=== PATIENT | female | born 1985 | race Caucasian/White ===

== ENCOUNTER 2020-09-27 15:19 | Outpatient (REF) | payer OTHER, SELFPAY ==
[2020-09-27 15:27] LABS: Glucose Urine UA NEG (NEG); Leukocyte Esterase Urine 2+ (NEG); Nitrite Urine NEG (NEG); Specific Gravity - Urine <= 1.005 (1.005-1.025); Urine Blood NEG (NEG); Urine Ketones NEG (NEG); Urine Protein NEG (NEG-TRACE)
[2020-09-27 15:34] LABS: Appearance Urine CLEAR; Color Urine YELLOW
[2020-09-27 15:35] LABS: Bacteria Urine 1+ /LPF; RBC Urine 0-2 /HPF (0); Squamous Epithelial Cell Urine TRACE /LPF
== END 2020-09-27 15:20 | disposition home or self-care (01) ==
LOC: HO.LNP 15:19
PROVIDERS: Visit Provider Family Medicine
DX: R30.0 Dysuria (principal)
CPT/HCPCS: 81001

== ENCOUNTER 2020-10-25 10:41 | Outpatient (REF) | payer OTHER, SELFPAY ==
[2020-10-25 14:53] LABS: Free T4 (Free Thyroxine) 1.32 ng/dL (0.71-1.85)
[2020-10-25 15:00] LABS: Syphilis Screen Nonreactive (Nonreactive)
[2020-10-25 16:46] LABS: CT PCR NOT DETECTED (Not Detect.); NG PCR NOT DETECTED (Not Detect.)
[2020-10-26 07:51] LABS: Triiodothyronine T3 Total 113 ng/dL (76-181)
[2020-10-28 08:18] LABS: HBS Num1 24.17 mIU/mL (0-7.99); HBsAGNum1 0.82 S/CO (0.00-0.99); HIV AB/AG Nonreactive (Nonreactive); HIV Num 1 0.08 S/CO (0.00-0.99); Hepatitis B Surface Antigen Negative (Negative); ~Hepatitis B Surface Antibody REACTIVE (Nonreactive)
[2020-10-28 08:25] LABS: Hepatitis B Core Antibody Nonreactive (Nonreactive); ~HepC Num1 0.05 S/CO (0.00-0.79); ~Hepatitis C Antibody Nonreactive (Nonreactive)
== END 2020-10-25 10:42 | disposition home or self-care (01) ==
LOC: HO.WFDLDS 10:41
PROVIDERS: Visit Provider Family Medicine
DX: Z01.84 Encounter for antibody response examination (principal); Z11.4 Encounter for screening for human immunodeficiency virus [HIV]; Z11.3 Encounter for screening for infections with a predominantly sexual mode of transmission; Z11.59 Encounter for screening for other viral diseases; E03.9 Hypothyroidism, unspecified
CPT/HCPCS: 36415; 84439; 84443; 84480; 86704; 86706; 86780; 86803; 87340; 87389; 87491; 87591

== ENCOUNTER 2021-02-27 12:01 | Outpatient (REF) | payer OTHER, SELFPAY ==
--- NOTE | ~2021-02-27 | XR_ITS ---
EXAMINATION: XR FINGER, LEFT CLINICAL INFORMATION: Contractured. COMPARISON: None TECHNIQUE: Three views of the left index finger. FINDINGS: There is mild soft tissue edema around the second digit without evidence of radiopaque foreign bodies. There is anatomic alignment of the joints. No evidence of acute fractures. Carpal rows are maintained. The scapholunate interval is within normal limits. XR/XR finger LT min 2V IMPRESSION: Aside from mild soft tissue edema of the second digit, no other acute radiographic abnormalities are identified.
== END 2021-02-27 12:02 | disposition home or self-care (01) ==
LOC: HO.XRAY 12:01
PROVIDERS: PCP Hospitalist; Visit Provider Hospitalist
DX: M24.549 Contracture, unspecified hand (principal)
CPT/HCPCS: 73140

== ENCOUNTER → 2021-05-01 11:14 | Outpatient (BNVA) | payer OTHER, SELFPAY | PROVIDERS: PCP Hospitalist; Visit Provider Advanced Practice Midwife ==

== ENCOUNTER 2021-06-12 08:35 | Outpatient (REF) | payer OTHER, SELFPAY ==
[2021-06-12 13:34] LABS: Hematocrit 43.6 % (37.0-47.0); Hemoglobin 14.7 g/dl (12.0-16.0); Mean Corpuscular HGB Conc 33.7 g/dl (31.0-35.0); Mean Corpuscular Hemoglobin 29.3 pg (27.0-33.0); Mean Corpuscular Volume 86.9 fL (80.0-98.0); Platelet Count 241 X10*3/uL (160-400); Red Blood Count 5.02 X10*6/uL (4.20-5.50); Red Cell Distribution Width 12.8 % (11.0-16.0); White Blood Count 7.8 X10*3/uL (4.8-10.8)
[2021-06-12 14:03] LABS: TSH reflex Free T4 0.09 uIU/mL (0.32-4.0)
[2021-06-12 14:35] LABS: Free T4 (Free Thyroxine) 1.22 ng/dL (0.71-1.85)
== END 2021-06-12 08:36 | disposition home or self-care (01) ==
LOC: HO.WFDLDS 08:35
PROVIDERS: Visit Provider Hospitalist
DX: R40.3 Persistent vegetative state (principal)
CPT/HCPCS: 36415; 84439; 84443; 85027

== ENCOUNTER 2021-06-18 08:59 | Outpatient (REF) | payer OTHER, SELFPAY ==
[2021-06-18 15:36] LABS: CT PCR NOT DETECTED (Not Detect.); NG PCR NOT DETECTED (Not Detect.)
== END 2021-06-18 09:00 | disposition home or self-care (01) ==
LOC: HO.LAB 08:59
PROVIDERS: Visit Provider Advanced Practice Midwife
DX: Z30.430 Encounter for insertion of intrauterine contraceptive device (principal); Z20.2 Contact with and (suspected) exposure to infections with a predominantly sexual mode of transmission
CPT/HCPCS: 58300; 81025; 87491; 87591; J7296

== ENCOUNTER → 2021-07-24 09:46 | Outpatient (BNVA) | payer OTHER, SELFPAY | PROVIDERS: Visit Provider Advanced Practice Midwife | DX: Z30.431 Encounter for routine checking of intrauterine contraceptive device (principal) | CPT/HCPCS: 99212 ==

== ENCOUNTER → 2021-09-04 11:01 | Outpatient (BNVA) | payer OTHER, SELFPAY | PROVIDERS: Visit Provider Advanced Practice Midwife | DX: Z23 Encounter for immunization (principal) | CPT/HCPCS: 90471; 90651; 99211 ==

== ENCOUNTER 2021-09-24 11:17 | Outpatient (REF) | payer OTHER, SELFPAY ==
[2021-09-27 13:02] LABS: HPV mRNA E6/E7 rflx Not Detected (Not Detected)
== END 2021-09-24 11:18 | disposition home or self-care (01) ==
LOC: HO.LAB 11:17
PROVIDERS: Visit Provider Advanced Practice Midwife
DX: Z01.419 Encounter for gynecological examination (general) (routine) without abnormal findings (principal)
CPT/HCPCS: 87624; 88142

== ENCOUNTER → 2021-11-27 08:44 | Outpatient (BNVA) | payer OTHER, SELFPAY | PROVIDERS: PCP Family Medicine; Visit Provider Advanced Practice Midwife | DX: N63.11 Unspecified lump in the right breast, upper outer quadrant (principal); R92.2 Inconclusive mammogram; Z12.39 Encounter for other screening for malignant neoplasm of breast | CPT/HCPCS: 99212 ==

== ENCOUNTER 2021-12-18 14:52 | Outpatient (REF) | payer OTHER, SELFPAY ==
--- NOTE | ~2021-12-18 | MM_ITS ---
EXAMINATION: MM DIAGNOSTIC DIGITAL BREAST TOMOSYNTHESIS, BILATERAL US BREAST, TARGETED, RIGHT CLINICAL INFORMATION: Right breast lump upper outer quadrant. The lifetime risk of breast cancer based on the Tyrer-Cuzick Model is 10.2%. COMPARISON: Mammography: None TECHNIQUE: Digital breast tomosynthesis is performed in both the craniocaudal and mediolateral oblique views along with computer-aided detection (CAD). Synthesized 2D images are generated from the tomosynthesis. Targeted right breast ultrasound. FINDINGS: MAMMOGRAM: The breasts are extremely dense, which lowers the sensitivity of mammography (ACR BI-RADS breast composition Category d). There are innumerable calcifications seen bilaterally with no one more suspicious grouping identified. There are a few circumscribed densities noted bilaterally. Associated with the palpable abnormality there is approximately 2.4 x 2.1 cm circumscribed density. ULTRASOUND: Targeted ultrasound evaluation demonstrates numerous cysts with the largest being the palpable region measuring approximately 2.3 x 3.0 x 1.4 cm in size. Results are discussed with the patient at time of visit. MM/MM tomosynthesis diagnostic BI IMPRESSION: Palpable abnormality corresponds to a simple cyst. Numerous other cysts were identified on ultrasound with no suspicious solid mass. ASSESSMENT: BI-RADS 2: Benign RECOMMENDATION: Clinical follow-up. Screening mammography starting at age 40.
== END 2021-12-18 14:53 | disposition home or self-care (01) ==
LOC: HO.MAMMO 14:52
PROVIDERS: Visit Provider Family Medicine
DX: N63.11 Unspecified lump in the right breast, upper outer quadrant (principal); R82.2 Biliuria
CPT/HCPCS: 76642; 77062; 77066

== ENCOUNTER 2022-07-02 08:35 | Outpatient (REF) | payer OTHER, SELFPAY ==
[2022-07-02 16:39] LABS: CT PCR NOT DETECTED (Not Detect.); NG PCR NOT DETECTED (Not Detect.)
[2022-07-03 10:57] LABS: BV Int Neg Control Negative (Negative); BV Int Pos Control Positive (Positive)
== END 2022-07-02 08:36 | disposition home or self-care (01) ==
LOC: HO.LAB 08:35
PROVIDERS: PCP Family Medicine; Visit Provider Advanced Practice Midwife
DX: N89.8 Other specified noninflammatory disorders of vagina (principal); T83.32XA Displacement of intrauterine contraceptive device, initial encounter; Z20.2 Contact with and (suspected) exposure to infections with a predominantly sexual mode of transmission
CPT/HCPCS: 0353U; 81003; 87480; 87510; 87660; 99212

== ENCOUNTER 2022-07-02 09:03 | Outpatient (REF) | payer OTHER, SELFPAY | END 2022-07-02 09:04 | disposition home or self-care (01) | LOC: HO.LNP 09:03 | PROVIDERS: Visit Provider Advanced Practice Midwife | DX: Z13.89 Encounter for screening for other disorder (principal) ==

== ENCOUNTER 2022-07-17 10:48 | Outpatient (REF) | payer OTHER, SELFPAY ==
--- NOTE | ~2022-07-17 | US_ITS ---
EXAMINATION: US PELVIS CLINICAL INFORMATION: Displacement of IUD. COMPARISON: None available. TECHNIQUE: Ultrasound of the pelvis is performed using both transabdominal and transvaginal transducers along with Doppler. Transvaginal imaging is performed due to inadequate visualization transabdominally. FINDINGS: Uterus: The uterus is anteverted and measures 7.7 x 4.0 x 4.5 cm. The double wall endometrial thickness is 0.5 mm. An IUD is present in appropriate position within the endometrial canal. The uterus is smooth in contour and has normal myometrial echogenicity. No visible fibroid. Adnexa: Both ovaries are visualized. There is normal color flow to the adnexa. There is no ovarian torsion. There is a small amount of fluid present in the cul-de-sac. Right ovary measures 3.0 x 1.7 x 3.2 cm for a volume of 8.6 mL. Left ovary measures 3.7 x 2.0 x 2.4 cm for a volume of 9.3 mL, which includes a benign simple 1.9 cm cyst. US/US pelvic and transvaginal IMPRESSION: An IUD is present in appropriate position.
== END 2022-07-17 10:49 | disposition home or self-care (01) ==
LOC: HO.US 10:48
PROVIDERS: PCP Family Medicine; Visit Provider Advanced Practice Midwife
DX: T83.32XA Displacement of intrauterine contraceptive device, initial encounter (principal)
CPT/HCPCS: 76830; 76856

== ENCOUNTER → 2022-08-14 11:29 | Outpatient (BNVA) | payer OTHER, SELFPAY | PROVIDERS: PCP Family Medicine; Visit Provider Advanced Practice Midwife ==

== ENCOUNTER 2023-06-25 08:51 | Outpatient (REF) | payer OTHER, SELFPAY ==
[2023-06-26 05:29] LABS: CT PCR NOT DETECTED (Not Detect.); NG PCR NOT DETECTED (Not Detect.)
[2023-06-26 13:46] LABS: BV Int Neg Control Negative (Negative); BV Int Pos Control Positive (Positive)
== END 2023-06-25 08:52 | disposition home or self-care (01) ==
LOC: HO.LNP 08:51
PROVIDERS: PCP Family Medicine; Visit Provider Advanced Practice Midwife
DX: Z01.419 Encounter for gynecological examination (general) (routine) without abnormal findings (principal); N89.8 Other specified noninflammatory disorders of vagina; R21 Rash and other nonspecific skin eruption
CPT/HCPCS: 0353U; 87480; 87510; 87660; 99395

== ENCOUNTER 2023-06-25 08:51 | Outpatient (AMB) | payer OTHER, SELFPAY ==
--- NOTE | 2023-06-25 08:55 | A.OFFVIS_ITS ---
Intake Vital Signs 06/25/23 08:57 Height 5 ft 2 in Weight 124 lb BMI 22.7 Intake Visit Reasons: STAINED GLASS GLAZIER annual exam/do not kathryn. Intake Note: c/o of sore on groin Mines Safety Engineer Required: No Information Interpreted: non-clinical & clinical Drying Oven Tender: Drying Oven Tender Present (Adore BAUER) Allergies No Known Allergies Allergy (Verified 06/25/23 08:57) Is last menstrual period known: Yes Last menstrual period: 06/13/23 HPI HPI Comments History of Present Illness Details She is a premenopausal woman presenting for annual examination. Doing well with concerns: groin crease rash a few weeks ago, partner now has a rash and has appt. to be seen. She tries to eat healthy and stays active with exercise. Regular monthly menses w/ the Kyleena, she is wondering when it has to be removed-inserted 05/2021. History of missing string confirmation the IUD was present via ultrasound subsequently. Currently is sexually active. She denies vaginal itching and irritation. STI screening offered; she accepts-declines blood work. Denies family history of ovarian or colon cancer. Family history maternal aunt with breast cancer. Last pap smear 2021, negative. [facility] Medical History Dense breast tissue Gestational diabetes Need for vaccination against human papillomavirus Hypothyroid Surgical History Hx of wisdom tooth extraction Family History Father No problems noted. Maternal Grandfather Diabetes Social History Household Members: Significant Other Household Members Other:: daughter Housing: Apartment Alcohol intake: current Alcohol intake frequency: a few times a month Patient Tobacco Use Status: Never used Tobacco Use of substances other than those prescribed or required for medical reasons: Yes Substance Use Type: Marijuana service: No Current occupational status: employed Current occupation: Therapist Current occupational exposures/hazards: No Sexually active: Yes Sexual orientation: Straight/Heterosexual Gender identity: Female Female Reproductive History Menstrual Age of Menarche: 14 Date of last menstrual period: 06/13/23 control method: progestin IUCD (Kyeena 05/2021, missing string confirm position w/US) Total pregnancies: 1 Full term: 1 Number of Living Children: 1 Date of last pap smear: 09/25/21 History of abnormal pap smear: No Date of Mammogram: 12/18/21 History of abnormal mammogram: No Review of Systems Const All systems reviewed & are unremarkable except as noted in HPI and below Reports as per HPI Eyes Reports no additional complaints ENT Reports no additional complaints Card Reports no additional complaints Resp Reports no additional complaints GI Reports as per HPI and Reports no additional complaints Reports as per HPI Musc Reports no additional complaints Skin/Breast Reports as per HPI Neuro Reports no additional complaints Psych Reports no additional complaints Endo Reports no additional complaints Kaleb/Lymph Reports no additional complaints Aller/Immun Reports no additional complaints Physical Exam Vital Signs: BMI result Body Mass Index 22.7 Const General: cooperative, healthy appearing, no acute distress, well developed and alert Orientation/consciousness: patient oriented x3 HEENT Head: Yes normal to inspection Eyes General: appearance normal, both eyes and all related structures Neck Neck: Yes normal visual inspection Thyroid: Thyroid normal Chest Chest palpation & inspection: normal inspection of the chest and other (no puckering, dimpling, peau de orange, retraction, discharge, masses) Breast/axilla inspection: normal inspection of the breasts Breast/axilla palpation: normal palpation of the breasts Resp Effort & Inspection: normal respiratory effort GI Inspection: Yes normal to inspection Palpation (GI): Soft to palpation Rectal Exam - Female: deferred General: Yes bladder normal to palpation External Female Exam: normal external appearance and normal appearance of the urethra Speculum Exam - Vagina: normal appearance of the vagina, normal palpation and normal vaginal discharge Speculum Exam - Cervix: normal appearance of the cervix and normal palpation Bimanual exam- vagina & uterus: normal bimanual exam, normal palpation, uterine size normal, bladder normal to palpation, normal palpation and non-tender Bimanual Exam- Adnexa, other: no masses Skin General skin exam: no rashes or lesions noted Rashes: no rashes Neuro General: patient oriented x3 Cognition (Neuro): normal cognition Extrem General: Yes normal to inspection Psych Attitude: cooperative Thought process: Normal thought process present Assessment & Plan Assessment & Plan (1) Encounter for well woman exam with routine gynecological exam: Code(s): Z01.419 - Encounter for gynecological examination (general) (routine) without abnormal findings Plan Discussed: Current recommendations for pap smears per ASCCP guidelines. Breast awareness and periodic breast exams. Maintain a healthy lifestyle including a well balanced diet and routine exercise. Advised if any of her occurrences unusual rashes to come in sooner, if appointment unavailable can take a screen shot of a rash to review at her follow-up. Patient verbalizes understanding and agrees to the plan of care. She was given opportunity to ask questions and all questions were answered to the best of my ability. RTO in one year for annual hand launderer examination. This note is constructed using voice recognition software. While every effort has been made to ensure accuracy, animal anatomy teacher errors may have been included. Coding Level of Care Code Est Pt Prev Care 18-39y(21654) Diagnoses Encounter for well woman exam with routine gynecological exam Z01.419
[2023-06-25 08:57] VITALS: BMI 22.7
== END 2023-06-25 09:29 | disposition home or self-care (01) ==
LOC: HO.HWS 08:51
PROVIDERS: PCP Family Medicine; Visit Provider Advanced Practice Midwife
DX: Z01.419 Encounter for gynecological examination (general) (routine) without abnormal findings (principal)
CPT/HCPCS: 99395

== ENCOUNTER 2023-08-06 09:48 | Outpatient (REF) | payer OTHER, SELFPAY ==
[2023-08-06 17:02] LABS: CT PCR NOT DETECTED (Not Detect.); NG PCR NOT DETECTED (Not Detect.)
[2023-08-07 13:20] LABS: BV Int Neg Control Negative (Negative); BV Int Pos Control Positive (Positive)
== END 2023-08-06 09:49 | disposition home or self-care (01) ==
LOC: HO.LNP 09:48
PROVIDERS: PCP Family Medicine; Visit Provider Advanced Practice Midwife
DX: N89.8 Other specified noninflammatory disorders of vagina (principal); B00.9 Herpesviral infection, unspecified; S70.322A Blister (nonthermal), left thigh, initial encounter; X58.XXXA Exposure to other specified factors, initial encounter; Y93.9 Activity, unspecified; Y92.9 Unspecified place or not applicable; Y99.9 Unspecified external cause status; Z11.3 Encounter for screening for infections with a predominantly sexual mode of transmission
CPT/HCPCS: 0353U; 87255; 87480; 87510; 87660; 99212

== ENCOUNTER 2023-08-06 09:48 | Outpatient (AMB) | payer OTHER, SELFPAY ==
--- NOTE | 2023-08-06 09:54 | A.OFFVIS_ITS ---
Intake Vital Signs 08/06/23 09:59 Height 5 ft 2 in Weight 123 lb 7.342 oz BMI 22.6 BP 104/60 Intake Visit Reasons: outbreak ? Crocheter Required: No Information Interpreted: non-clinical & clinical Underground Mine Machinery Mechanic: Underground Mine Machinery Mechanic Present (Adore BAUER) Accompanied by: Self / Same As Patient Allergies No Known Allergies Allergy (Verified 08/06/23 10:00) Is last menstrual period known: Yes Last menstrual period: 07/11/23 HPI HPI Comments History of Present Illness Details Patient is here today due to onset blisters in her upper left thigh adjacent to the groin, onset yesterday they are painful. This is the 2nd occurrence of similar lesions in the same area. She admits to some vaginal odor slight itching, history of bacterial vaginosis. [facility] Medical History Dense breast tissue Gestational diabetes Need for vaccination against human papillomavirus Hypothyroid Surgical History Hx of wisdom tooth extraction Family History Father No problems noted. Maternal Grandfather Diabetes Social History Household Members: Significant Other Household Members Other:: daughter Housing: Apartment Alcohol intake: current Alcohol intake frequency: a few times a month Patient Tobacco Use Status: Never used Tobacco Substance Use Type: Marijuana service: No Current occupational status: employed Current occupation: Therapist Current occupational exposures/hazards: No Sexual orientation: Straight/Heterosexual Gender identity: Female Female Reproductive History Menstrual Age of Menarche: 14 Date of last menstrual period: 07/11/23 Review of Systems Const All systems reviewed & are unremarkable except as noted in HPI and below Physical Exam Vital Signs: Last Vital Signs BP 104/60 08/06/23 09:59 BMI result Body Mass Index 22.6 Const General: cooperative, healthy appearing and no acute distress Orientation/consciousness: patient oriented x3 GI Inspection: Yes normal to inspection Palpation (GI): Soft to palpation and Other GI palpation findings present (Nontender) Rectal Exam - Female: visual inspection normal Other: Cluster of herpetic appearing vesicles on the upper left thigh adjacent to the g roin area General: Yes bladder normal to palpation External Female Exam: normal appearance of the urethra Speculum Exam - Vagina: normal appearance of the vagina, normal palpation and normal vaginal discharge Speculum Exam - Cervix: normal appearance of the cervix and normal palpation Bimanual exam- vagina & uterus: normal bimanual exam, normal palpation, uterine size normal, bladder normal to palpation, normal palpation, uterine shape normal and non-tender Bimanual Exam- Adnexa, other: normal adnexae Neuro General: patient oriented x3 Assessment & Plan Assessment & Plan (1) Herpetic lesions: Code(s): B00.9 - Herpesviral infection, unspecified (2) Vaginal odor: Code(s): N89.8 - Other specified noninflammatory disorders of vagina Plan Discussed: Instructions: Clean with warm water, no soaps, scented products. Use a cool cloth to the area several times a day if swollen and/or uncomfortable. Wear loose, cotton underclothes, avoid tight outer clothing. Air when possible. No coitus until well healed. Complete all medications as prescribed. Await final pending results for any changes in the plan of care. Encouraged good nutrition, adequate hydration and rest. Call the office if there is no improvement in 24-48hrs., or if worsening symptoms. BV panel GC chlamydia and viral culture obtained today. She would like to defer any blood work at this time. Discuss the role of probiotics for good health and vaginal health purposes in regards to chronic BV. Start Valtrex and topical Zovirax. Reviewed use of [id number]-[id number]-[id number] self-help medications such as Tylenol or ibuprofen for discomfort. Follow up as needed. All of her questions and concerns were addressed to the best of my ability. She is agreeable to the plan of care. This note is constructed using voice recognition software. While every effort has been made to ensure accuracy, guitar teacher errors may have been included. Medications: New acyclovir 5% (Zovirax) 1 appl topical 6XD 7 days PRN 30 grams 2RF prn valacyclovir (Valtrex) take with onset on of symptoms, take for three days, may repeat dosing per episode prn 500 mg PO BID 30 tabs 1RF Coding Level of Care Code Est Pt Level 3 (74035) Diagnoses Herpetic lesions B00.9 Vaginal odor N89.8
[2023-08-06 09:59] VITALS: BP 104/60; BMI 22.6
== END 2023-08-06 11:06 | disposition home or self-care (01) ==
PROVIDERS: PCP Family Medicine; Visit Provider Advanced Practice Midwife
DX: B00.9 Herpesviral infection, unspecified (principal); N89.8 Other specified noninflammatory disorders of vagina
CPT/HCPCS: 99213

== ENCOUNTER 2024-04-04 09:05 | Outpatient (REF) | payer OTHER, SELFPAY ==
[2024-04-04 17:00] LABS: Bacterial Vaginosis PCR NEGATIVE (Negative); Candida Group PCR DETECTED (Not Detect); Candida glab krusei PCR NOT DETECTED (Not Detect); Trichomonas vaginalis PCR NOT DETECTED (Not Detect)
[2024-04-04 17:32] LABS: CT PCR NOT DETECTED (Not Detect.); NG PCR NOT DETECTED (Not Detect.)
== END 2024-04-04 09:06 | disposition home or self-care (01) ==
LOC: HO.LNP 09:05
PROVIDERS: PCP Family Medicine; Visit Provider Advanced Practice Midwife
DX: N89.8 Other specified noninflammatory disorders of vagina (principal); N94.10 Unspecified dyspareunia; Z30.431 Encounter for routine checking of intrauterine contraceptive device
CPT/HCPCS: 0352U; 87491; 87591; 99212; 99459

== ENCOUNTER 2024-04-04 09:05 | Outpatient (AMB) | payer OTHER, SELFPAY ==
--- NOTE | 2024-04-04 09:32 | A.OFFVIS_ITS ---
Intake Visit Reasons: vaginal discharge Exceptional Children Teacher Assistant: Exceptional Children Teacher Assistant Present (Fallon) Accompanied by: Self / Same As Patient Allergies No Known Allergies Allergy (Verified 04/04/24 09:33) HPI Comments Details: Patient is here today with concerns of external itching and burning. Urine dip is negative today. Yesterday, she felt her vulva was on fire, dry and itchy. She used an aruw-zyz-fhoadre vaginal antifungal insert yesterday. New onset of unilateral dysparenia, unsure of what side. Recent antiviral med use last week, no antibiotics use. Normal menses, no irregular or post coital bleeding. Sexually active, has some ongoing irritation with partner over last 3 yrs. He does not have any symptoms. [facility] Medical History Dense breast tissue Gestational diabetes Need for vaccination against human papillomavirus Hypothyroid Surgical History Hx of wisdom tooth extraction Family History Father No problems noted. Maternal Grandfather Diabetes Social History Household Members: Significant Other Household Members Other:: daughter Housing: Apartment Alcohol intake: current Alcohol intake frequency: a few times a month Patient Tobacco Use Status: Never used Tobacco Substance Use Type: Marijuana service: No Current occupational status: employed Current occupation: Therapist Current occupational exposures/hazards: No Sexual orientation: Straight/Heterosexual Gender identity: Female Female Reproductive History Menstrual Age of Menarche: 14 Duration of menses: 3-5 days Date of last menstrual period: 03/16/24 Review of Systems Const All systems reviewed & are unremarkable except as noted in HPI and below Physical Exam Const General: cooperative, healthy appearing and no acute distress Orientation/consciousness: patient oriented x3 GI Inspection: Yes normal to inspection Palpation (GI): Soft to palpation and Other GI palpation findings present (Nontender) Rectal Exam - Female: visual inspection normal General: Yes bladder normal to palpation External Female Exam: normal appearance of the urethra Speculum Exam - Vagina: normal appearance of the vagina, normal palpation and abnormal vaginal discharge (Thick white and clumpy could be medication or yeast) Speculum Exam - Cervix: normal appearance of the cervix, normal palpation and Other cervical findings present (IUD strings again not found at os) Bimanual exam- vagina & uterus: normal bimanual exam, normal palpation, uterine size normal, bladder normal to palpation, normal palpation, uterine shape normal and non-tender Bimanual Exam- Adnexa, other: normal adnexae Neuro General: patient oriented x3 Assessment & Plan Assessment & Plan (1) Unspecified dyspareunia: Code(s): N94.10 - Unspecified dyspareunia Category: Medical (2) Vaginal irritation: Code(s): N89.8 - Other specified noninflammatory disorders of vagina Category: Medical (3) IUD surveillance: Code(s): Z30.431 - Encounter for routine checking of intrauterine contraceptive device Category: Medical Plan Discussed: Obtaining pelvic ultrasound to check for IUD position, rule out any pathological findings structurally with the anatomy, GC chlamydia and BV panel obtained await results for plan of care. Call if there is any concerns sooner. Ultrasound follow up to discuss results to be scheduled. The patient expressed understanding and agreement with the plan of care. All of her questions and concerns were addressed to the best of my ability. This note is constructed using voice recognition software. While every effort has been made to ensure accuracy, pier hand helper errors may have been included. Orders: Orders Bacterial Vaginosis Panel Today N89.8 - Other specified noninflammatory disord ers of vagina US pelvic and transvaginal Today N94.10 - Unspecified dyspareunia, Z30.431 - Encounter for routine checking of intrauterine contraceptive device CT NG by PCR Today N89.8 - Other specified noninflammatory disorders of vagina Coding Level of Care Code Est Pt Level 4 (10507) Diagnoses Unspecified dyspareunia N94.10 Vaginal irritation N89.8 IUD surveillance Z30.431
== END 2024-04-04 10:41 | disposition home or self-care (01) ==
PROVIDERS: PCP Family Medicine; Visit Provider Advanced Practice Midwife
DX: N94.10 Unspecified dyspareunia (principal); N89.8 Other specified noninflammatory disorders of vagina; Z30.431 Encounter for routine checking of intrauterine contraceptive device
CPT/HCPCS: 99214

== ENCOUNTER 2024-05-05 15:54 | Outpatient (REF) | payer OTHER, SELFPAY ==
--- NOTE | ~2024-05-05 | US_ITS ---
EXAMINATION: US PELVIS TRANSABDOMINAL AND TRANSVAGINAL HISTORY: N94.10 - Unspecified dyspareunia COMPARISON: Comparison is made with the prior examination dated 07/17/2022. TECHNIQUE: Transabdominal and endovaginal real-time 2D duarte-scale ultrasound was performed. Color Doppler was also performed. FINDINGS: Uterus: The uterus is normal in size, measuring 8.8 x 4.4 x 4.8 cm. Myometrium has a normal echotexture. No fibroids are identified. Endometrium: The endometrial stripe measures 3 mm in thickness. An IUD is noted in appropriate position. Right ovary: The right ovary measures 3.7 x 1.9 x 2.2 cm. The right ovary is normal in size and echotexture. Left ovary: The left ovary measures 2.8 x 1.9 x 1.6 cm. The left ovary is normal in size and echotexture. Color Doppler analysis of the bilateral ovarian arteries and veins are normal. Pelvic fluid: none. US/US pelvic and transvaginal IMPRESSION: Unremarkable pelvic ultrasound. IUD in appropriate position. Electronically signed by: Deon Traore MD 05/09/2024 07:27 AM [facility]
== END 2024-05-05 15:55 | disposition home or self-care (01) ==
LOC: HO.US 15:54
PROVIDERS: PCP Family Medicine; Visit Provider Advanced Practice Midwife
DX: Z30.431 Encounter for routine checking of intrauterine contraceptive device (principal); N94.10 Unspecified dyspareunia
CPT/HCPCS: 76830; 76856

== ENCOUNTER → 2024-05-05 15:56 | Outpatient (BNV) | payer OTHER, SELFPAY | PROVIDERS: PCP Family Medicine; Visit Provider Radiology Diagnostic Radiology | DX: N94.10 Unspecified dyspareunia (principal) | CPT/HCPCS: 76830; 76856 ==

== ENCOUNTER 2024-06-28 12:53 | Outpatient (AMB) | payer OTHER, SELFPAY ==
--- NOTE | 2024-06-28 12:53 | A.OFFVIS_ITS ---
Intake Visit Reasons: Ultra sound follow up Intake Note: cell #[phone] Personalized Living Manager Nurse: Personalized Living Manager Nurse Present Allergies No Known Allergies Allergy (Verified 06/28/24 12:54) Is last menstrual period known: Yes HPI Comments Details: Tele Health Visit Total time I personally spent on visit and management today: 14 minutes. Time spent included review of pertinent office notes in the electronic health record; review of laboratory and imaging results; review of personal family medical history; discussing diagnosis and plan of care with the patient; documenting the encounter in the EMR. Patient presents to discuss: Ultrasound findings, history dyspareunia. She reports the dyspareunia is somewhat improved with position changes and sometimes does not occur at. [facility] Medical History (Updated 04/04/24 @ 09:46 by Tash Leong CNM) Unspecified dyspareunia Dense breast tissue Gestational diabetes Need for vaccination against human papillomavirus Hypothyroid Surgical History Hx of wisdom tooth extraction Family History Father No problems noted. Maternal Grandfather Diabetes Social History Household Members: Significant Other Household Members Other:: daughter Housing: Apartment Alcohol intake: current Alcohol intake frequency: a few times a month Patient Tobacco Use Status: Never used Tobacco Substance Use Type: Marijuana service: No Current occupational status: employed Current occupation: Therapist Current occupational exposures/hazards: No Sexual orientation: Straight/Heterosexual Gender identity: Female Female Reproductive History Menstrual Age of Menarche: 14 Review of Systems Const All systems reviewed & are unremarkable except as noted in HPI and below Endo Reports no additional complaints Physical Exam Const General: cooperative, healthy appearing and no acute distress Psych Appearance: well kempt Attitude: cooperative Thought process: Normal thought process present Telehealth Telehealth Telehealth Platform: Reclamador Location of provider rendering services: practice address Location of patient: address on file Patient Identification confirmed using: Name, : Yes Telehealth method: video Patient verbally consented to treatment: Yes Patient verbally consented to billing insurance company: Yes Patient informed of any privacy concerns related to visit: Yes Results Reviewed Results Reviewed: [address] [address] Ultrasound Report Signed Patient: Hattie Katz MR#: [id number] : 1985 Acct:[id number] Age/Sex: 38 / F ADM Date: 05/05/24 Loc: HO.US Attending Dr: Tash Leong CNM Ordering Physician: Tash Leong CNM Date of Service: 05/05/24 Procedure(s): US pelvic and transvaginal Accession Number(s): [id number] cc: Miles Hanna MD; Tash Leong CNM~ EXAMINATION: US PELVIS TRANSABDOMINAL AND TRANSVAGINAL HISTORY: N94.10 - Unspecified dyspareunia COMPARISON: Comparison is made with the prior examination dated 07/17/2022. TECHNIQUE: Transabdominal and endovaginal real-time 2D duarte-scale ultrasound was performed. Color Doppler was also performed. FINDINGS: Uterus: The uterus is normal in size, measuring 8.8 x 4.4 x 4.8 cm. Myometrium has a normal echotexture. No fibroids are identified. Endometrium: The endometrial stripe measures 3 mm in thickness. An IUD is noted in appropriate position. Right ovary: The right ovary measures 3.7 x 1.9 x 2.2 cm. The right ovary is normal in size and echotexture. Left ovary: The left ovary measures 2.8 x 1.9 x 1.6 cm. The left ovary is normal in size and echotexture. Color Doppler analysis of the bilateral ovarian arteries and veins are normal. Pelvic fluid: none. US/US pelvic and transvaginal IMPRESSION: Unremarkable pelvic ultrasound. IUD in appropriate position. Electronically signed by: Deon Traore MD 05/09/2024 07:27 AM EST Dictated By: Deon Traore MD Signed By: <Electronically signed by Deon Traore MD in OV> 05/09/24 0727 DD/ 1604 TD/TT: 05/05/24 1619 Machinist Instructor: Assessment & Plan Assessment & Plan (1) IUD surveillance: Code(s): Z30.431 - Encounter for routine checking of intrauterine contraceptive device Category: Medical (2) Dyspareunia, female: Code(s): N94.10 - Unspecified dyspareunia (3) Encounter to discuss test results: Code(s): Z71.2 - Person consulting for explanation of examination or test findings Plan Discussed: Ultrasound findings unremarkable, IUD in proper position. Advised to report any increase in symptoms or other concerns. Use of lubricant and position change if indicated. Schedule annual exam. The patient expressed understanding and agreement with the plan of care. All of her questions and concerns were addressed to the best of my ability. This note is constructed using voice recognition software. While every effort has been made to ensure accuracy, homicide squad commanding officer errors may have been included. Coding Level of Care Code Tele Est Pt Level 2 (38247) Diagnoses IUD surveillance Z30.431 Dyspareunia, female N94.10 Encounter to discuss test results Z71.2
== END 2024-06-28 15:35 | disposition home or self-care (01) ==
LOC: HO.HWS 12:53
PROVIDERS: PCP Family Medicine; Visit Provider Advanced Practice Midwife
DX: Z30.431 Encounter for routine checking of intrauterine contraceptive device (principal); N94.10 Unspecified dyspareunia; Z71.2 Person consulting for explanation of examination or test findings
CPT/HCPCS: 98004

== ENCOUNTER → 2024-06-28 12:53 | Outpatient (BNVA) | payer OTHER, SELFPAY | PROVIDERS: PCP Family Medicine; Visit Provider Advanced Practice Midwife ==